=== PATIENT | male | born 1975 | race American Indian/Alaskan Native ===

== ENCOUNTER 2016-07-23 15:22 | Emergency (ER) | payer MEDICAID, MEDICARE ==
--- NOTE | 2016-07-23 15:47 | Emergency Department Report ---
Chief Complaint: Abdominal Pain Stated Complaint: ABD PAIN Time Seen by Provider: 07/23/16 15:44 - HPI History of Present Illness: Patient is a 41 y/o male with h/o HIV who presents due to left flank pain x 2 hours ago. Patient states that he started having sharp pain in his left flank area. Patient denies any fever, chills, vomiting or diarrhea. - ROS Review of Systems: patient denies any nausea, vomiting or diarrhea, dysuria, hematuria - Exam Vital Signs: Vital Signs 07/23/16 15:28 Temperature 98.1 F Pulse Rate 78 Respiratory 20 Rate Blood Pressure 136/96 O2 Sat by Pulse 100 Oximetry Physical Exam: NAD MSE screening note: Focused history and physical exam performed. Due to findings the following was ordered: ED Disposition for MSE Condition: Stable
[2016-07-23 16:05] LABS: Basophils % (Auto) 0.3 % (0.0-1.8); Eosinophils % (Auto) 4.6 % (0.0-4.3); Hematocrit 34.2 % (35.5-45.6); Hemoglobin 11.1 gm/dl (11.8-15.2); Mean Corpuscular HGB Conc 33 % (32-34); Mean Corpuscular Hemoglobin 32 pg (28-32); Mean Corpuscular Volume 98 fl (84-94); Platelet Count 179 K/mm3 (140-440); Red Cell Distribution Width 16.6 % (13.2-15.2); White Blood Count 7.2 K/mm3 (4.5-11.0)
[2016-07-23 16:30] LABS: Alanine Aminotransferase 15 units/L (7-56); Albumin 3.4 g/dL (3.9-5); Albumin/Globulin Ratio 0.8 %; Alkaline Phosphatase 67 units/L (35-129); Amylase 156 units/L (27-131); Anion Gap 17 mmol/L; Bilirubin,Total 0.2 mg/dL (0.1-1.2); Blood Urea Nitrogen 28 mg/dL (9-20); Calcium 8.6 mg/dL (8.4-10.2); Carbon Dioxide 19 mmol/L (22-30); Chloride 103.7 mmol/L (98-107); Glucose 85 mg/dL (75-100); Lipase 31 units/L (13-60); Potassium 5.1 mmol/L (3.6-5.0); Sodium 135 mmol/L (137-145); Total Protein 7.9 g/dL (6.3-8.2)
[2016-07-23 16:32] LABS: Bilirubin,Direct < 0.2 mg/dL (0-0.2)
[2016-07-24 00:34] VITALS: BP 143/89
[2016-07-24] MEDS ORDERED: PERCOCET 5/325 PO ONE (01:00)
[2016-07-24 01:06] LABS: Bacteria,Urine 1+ /HPF (Negative); Bilirubin,Urine NEG (Negative); Blood,Urine SM (Negative); Ketones,Urine NEG (Negative); Leukocyte Esterase,Urine NEG (Negative); Mucus,Urine FEW /HPF; Nitrite,Urine NEG (Negative); Urobilinogen,Urine < 2.0 mg/dL (<2.0)
--- NOTE | 2016-07-24 01:10 | Emergency Department Report ---
HPI - General Chief Complaint: Abdominal Pain Time Seen by Provider: 07/24/16 00:49 - HPI HPI: This is a 41-year-old Afro[place] male who presents to the emergency department with complaint of left upper quadrant sharp abdominal pain that started about 10 AM this morning. It is improved now. It started off at 10 out of 10 in intensity but is currently 3 out of 10. He denies any nausea, vomiting, back pain, dysuria, fever or any problems with bowel or bladder. He did not take anything for symptoms prior to presentation. His primary care doctor is a Dr. Mcneil. His past medical history includes HIV and borderline hypertension. No recent travel or sick contacts at home. ED Past Medical Hx - Past Medical History Previous Medical History?: Yes Hx Hypertension: Yes (borderline HTN) Hx HIV: Yes - Surgical History Past Surgical History?: Yes Additional Surgical History: eye surgery as a baby - Social History Smoking Status: Never Smoker Substance Use Type: Alcohol, Prescribed - Medications Home Medications: Home Medications Medication Instructions Recorded Confirmed Last Taken Type Ondansetron [Zofran] 4 mg PO Q6HR PRN #20 tablet 09/29/14 Unknown Rx oxyCODONE /ACETAMINOPHEN [Percocet 1 tab PO Q6HR PRN #20 tablet 09/29/14 Unknown Rx 5/325] ED Review of Systems ROS: Stated complaint: ABD PAIN Other details as noted in HPI Comment: All other systems reviewed and negative Constitutional: denies: chills, fever Eyes: denies: eye pain, eye discharge, vision change ENT: denies: ear pain, throat pain Respiratory: denies: cough, shortness of breath, wheezing Cardiovascular: denies: chest pain, palpitations Gastrointestinal: abdominal pain. denies: nausea, vomiting Genitourinary: denies: urgency, dysuria Musculoskeletal: denies: back pain, joint swelling, arthralgia Skin: denies: rash, lesions Neurological: denies: headache, weakness, paresthesias Physical Exam - Physical Exam Vital Signs: Vital Signs 07/23/16 07/24/16 15:28 00:33 Temperature 98.1 F 98.5 F Pulse Rate 78 75 Respiratory 20 18 Rate Blood Pressure 136/96 Blood Pressure 143/89 [Right] O2 Sat by Pulse 100 100 Oximetry Physical Exam: GENERAL: The patient is well-developed well-nourished. HEENT: Normocephalic. Atraumatic. Extraocular motions are intact. Patient has moist mucous membranes. Pupils equal reactive to light bilaterally. NECK: Supple. Trachea is midline. CHEST/LUNGS: Clear to auscultation. There is no respiratory distress noted. HEART/CARDIOVASCULAR: Regular. There is no tachycardia. There is no gallop rub or murmur. ABDOMEN: Abdomen is soft. Mild tenderness. Patient of the lower quadrants of the abdomen. No guarding or rebound tenderness. No peritoneal signs. There is some patient has normal bowel sounds. There is no abdominal distention. SKIN: There is no rash. There is no edema. There is no diaphoresis. NEURO: The patient is awake, alert, and oriented. The patient is cooperative. The patient has no focal neurologic deficits. The patient has normal speech. MUSCULOSKELETAL: There is no tenderness or deformity. There is no limitation range of motion. There is no evidence of acute injury. ED Course Vital Signs 07/23/16 07/24/16 15:28 00:33 Temperature 98.1 F 98.5 F Pulse Rate 78 75 Respiratory 20 18 Rate Blood Pressure 136/96 Blood Pressure 143/89 [Right] O2 Sat by Pulse 100 100 Oximetry ED Medical Decision Making - Lab Data Result diagrams: 07/23/16 15:55 07/23/16 15:55 - Radiology Data Radiology results: image reviewed interpreted by me: X-ray of the abdomen shows nonobstructive nonspecific bowel gas but no obvious acute process. - Medical Decision Making 41-year-old male presents to the emergency department with complaint of left upper quadrant abdominal pain that began about 10 AM and has improved since. Patient was given a single pain pill and upon reevaluation he is pain-free. An abdominal x-ray was done that does not show any obvious signs of obstruction or any acute process. Patient's labs and unremarkable. Vital signs stable throughout his ED course. Patient be discharged home to follow-up with his primary care doctor. If his pain returns or worsens he will return to the emergency department for further evaluation and possible CT scan. - Differential Diagnosis colitis, gastritis, food poisoning, bowel obstruction Critical Care Time: No Critical care attestation.: If time is entered above; I have spent that time in minutes in the direct care of this critically ill patient, excluding procedure time. ED Disposition Clinical Impression: Abdominal pain Qualifiers: Abdominal location: unspecified location Qualified Code(s): R10.9 - Unspecified abdominal pain Disposition: DISCHARGED TO HOME OR SELFCARE Is pt being admited?: No Does the pt Need Aspirin: No Condition: Good Instructions: Abdominal Pain (ED) Additional Instructions: Please follow-up with your primary care doctor in the next few days. Return to the ER with any worsening of your symptoms or any acute distress. Referrals: JESSICA MCNEIL DR [Other] - 3-5 Days Time of Disposition: 02:44
--- NOTE | 2016-07-24 09:34 | XRay Report ---
Abdomen 2 views: History: Abdominal pain. Findings: No bowel distention or wall thickening. No radiopaque calculus or abnormal calcification. No fluid levels. Impression: Nonspecific findings. No bowel distention.
== END 2016-07-24 03:11 | disposition home or self-care (01) ==
LOC: ED 15:22
DX: R10.30 Lower abdominal pain, unspecified (principal); I10 Essential (primary) hypertension
CPT/HCPCS: 36415; 74020; 80048; 80074; 81001; 82150; 83690; 85025